=== PATIENT | male | born 1970 | race Hispanic/Latino ===

== ENCOUNTER 2021-01-05 08:52 | Inpatient (IN) | payer OTHER ==
[2021-01-01 15:45] LABS: BASOPHILS % (AUTO) 0.5 % (0.0-5.0); HEMATOCRIT 43.4 % (42-54); LYMPHOCYTES % (AUTO) 31.1 % (21.0-51.0); MEAN CORPUSCULAR HEMOGLOBIN 31.5 pg (27.0-33.0); MEAN CORPUSCULAR HGB CONC 32.5 g/dL (32.0-36.0); MEAN CORPUSCULAR VOLUME 96.9 fL (79-99); MONOCYTES % (AUTO) 10.7 % (3.0-13.0); NEUTROPHILS % (AUTO) 56.5 % (40.0-77.0); PLATELET COUNT (AUTO) 363 K/uL (130-400); RED BLOOD CELL COUNT(AUTO) 4.48 MIL/uL (4.50-6.20); RED CELL DISTRIBUTION WIDTH 13.9 % (11.0-15.5); WHITE BLOOD COUNT (AUTO) 8.8 K/uL (4.8-10.8)
[2021-01-01 15:52] LABS: CREATININE 1.5 mg/dL (0.5-1.5); POTASSIUM 4.5 mmol/L (3.5-5.1)
[2021-01-01 15:56] LABS: INR 0.97 (0.85-1.15); PROTHROMBIN TIME 10.6 SEC (9.6-11.6)
[2021-01-01 15:57] LABS: PARTIAL THROMBOPLASTIN TIME 26.2 SEC (26.3-35.5)
[2021-01-02 10:44] VITALS: BP 131/67
[2021-01-05] VITALS (20 sets, daily range): BP systolic 121–172; BP diastolic 55–94
[~2021-01-05] VITALS: Ht 185.4 cm; Wt 165.1 kg
[~2021-01-05 08:52] MED LIST: CEFAZOLIN SODIUM 1 GM VIAL IVP ONE
[2021-01-05] MEDS: CEFOXITIN SODIUM 2 GM VIAL ONE ×2 (09:37→13:28)
[2021-01-05] MEDS: 0.9%NACL 1000ML 1,000 ML IV SCH ×2 (09:37→14:15)
[2021-01-05] MEDS ORDERED: GABA-529 PO (10:37)
[2021-01-05] MEDS ORDERED: CARV12.511 PO (10:37)
[2021-01-05] MEDS ORDERED: GEMF600T89 PO (10:37)
[2021-01-05] MEDS ORDERED: BUSP15TA3 PO (10:37)
[2021-01-05] MEDS ORDERED: ROSU20TA31 PO (10:37)
[2021-01-05] MEDS ORDERED: GLYB5TAB8 PO (10:37)
[2021-01-05] MEDS ORDERED: ROPI1TAB13 PO (10:37)
[2021-01-05] MEDS ORDERED: METF-446 PO (10:37)
[2021-01-05] MEDS ORDERED: IPRAHFA IH (10:37)
[2021-01-05] MEDS ORDERED: LISI1TAB53 PO (10:37)
[2021-01-05] MEDS ORDERED: BUPIVACAINE/PF 0.5% 30ML VIAL ONE (12:34)
[2021-01-05] MEDS ORDERED: FENTANYL CITRATE PF 50 MCG/1 ML 2ML VIAL ONE ×3 (12:43→15:12)
[2021-01-05] MEDS ORDERED: MIDAZOLAM HCL 1 MG/ML 2ML VIAL ONE (12:43)
[2021-01-05] MEDS ORDERED: DEXAMETHASONE SOD PHOSPHATE 10MG/ML 1ML VIAL ONE (12:43)
[2021-01-05] MEDS ORDERED: NEOSTIGMINE 5MG/5ML SYR IV ONE (12:43)
[2021-01-05] MEDS ORDERED: SUCCINYLCHOLINE 200MG/10ML SYR ONE ×2 (12:43→14:40)
[2021-01-05] MEDS ORDERED: LIDOCAINE PF 100MG/5ML (2%) SYRINGE 5ML ONE (12:43)
[2021-01-05] MEDS ORDERED: ROCURONIUM 10MG/1ML SYR 10 MG/ML ML ONE (12:43)
[2021-01-05] MEDS ORDERED: PROPOFOL 10 MG/ML 20ML VIAL IV ONE (12:43)
[2021-01-05] MEDS ORDERED: ONDANSETRON 4MG INJ ONE (12:43)
[2021-01-05] MEDS ORDERED: GLYCOPYRROLATE 1 MG/5 ML SYRINGE ONE (12:43)
[2021-01-05] MEDS ORDERED: MEPERIDINE-PF 25 MG/ML SYG ONE ×2 (13:16→15:27)
[2021-01-05] MEDS ORDERED: ONDANSETRON 4MG INJ IVP PRN (15:30)
[2021-01-05] MEDS: CEFAZOLIN SODIUM 1 GM VIAL IVP SCH (15:30)
[2021-01-05] MEDS ORDERED: MORPHINE 4 MG SYG IVP PRN (15:30)
[2021-01-05] MEDS ORDERED: KETOROLAC 30MG VIAL (30MG/ML) IM PRN (15:30)
[2021-01-05] MEDS: LACTATED RINGERS 1000ML 1,000 ML IV SCH ×2 (15:30→23:30)
[2021-01-05] MEDS ORDERED: LACTATED RINGERS 1000ML 1,000 ML IV ONE (16:22)
[2021-01-05] MEDS ORDERED: KETOROLAC 30MG VIAL (30MG/ML) IV PRN (19:00)
[2021-01-05] MEDS: BUSPIRONE HCL 5 MG TABLET PO SCH (20:58)
[2021-01-05] MEDS: FAMOTIDINE 20MG VIAL IV SCH (20:58)
[2021-01-05] MEDS: CARVEDILOL 12.5 MG TABLET PO SCH (20:59)
[2021-01-05] MEDS: ENOXAPARIN SODIUM 30 MG/0.3 ML SQ SCH (22:16)
[2021-01-06] MEDS: CEFAZOLIN SODIUM 1 GM VIAL IVP SCH (00:11)
[2021-01-06 04:01] LABS: BASOPHILS % (AUTO) 0.1 % (0.0-5.0); HEMATOCRIT 39.6 % (42-54); LYMPHOCYTES % (AUTO) 10.5 % (21.0-51.0); MEAN CORPUSCULAR HEMOGLOBIN 31.9 pg (27.0-33.0); MEAN CORPUSCULAR HGB CONC 32.8 g/dL (32.0-36.0); MEAN CORPUSCULAR VOLUME 97.3 fL (79-99); MONOCYTES % (AUTO) 9.3 % (3.0-13.0); PLATELET COUNT (AUTO) 287 K/uL (130-400); RED BLOOD CELL COUNT(AUTO) 4.07 MIL/uL (4.50-6.20); RED CELL DISTRIBUTION WIDTH 13.5 % (11.0-15.5); WHITE BLOOD COUNT (AUTO) 8.8 K/uL (4.8-10.8)
[2021-01-06 04:09] LABS: CREATININE 1.5 mg/dL (0.5-1.5); POTASSIUM 4.6 mmol/L (3.5-5.1)
[2021-01-06 04:13] VITALS: BP 165/62
[2021-01-06] MEDS ORDERED: IPRATROPIUM BROMIDE IH PRN (06:30)
[2021-01-06] MEDS: LACTATED RINGERS 1000ML 1,000 ML IV SCH ×2 (07:30→15:30)
[2021-01-06 07:49] VITALS: BP 153/70
[2021-01-06] MEDS: ENOXAPARIN SODIUM 30 MG/0.3 ML SQ SCH (08:17)
[2021-01-06] MEDS: FAMOTIDINE 20MG VIAL IV SCH (08:17)
[2021-01-06] MEDS: BUSPIRONE HCL 5 MG TABLET PO SCH (08:18)
[2021-01-06] MEDS: CARVEDILOL 12.5 MG TABLET PO SCH (08:18)
[2021-01-06] MEDS ORDERED: LISINOPRIL 20 MG TABLET PO SCH (09:00)
[2021-01-06] MEDS ORDERED: HYDROCHLOROTHIAZIDE 25 MG TABLET PO SCH (09:00)
[2021-01-06 10:41] VITALS: BP 161/85
[2021-01-06 15:49] VITALS: BP 160/73
[2021-01-06] MEDS: SIMETHICONE 80 MG TAB.CHEW PO SCH ×2 (16:23→16:24)
[2021-01-06] MEDS ORDERED: CEFAZOLIN SODIUM 1 GM VIAL IVP SCH (16:30)
== END 2021-01-06 19:13 | disposition home or self-care (01) | DRG 621 ==
LOC: DAHIP 08:52 → 4BH 16:54
PROVIDERS: ADMIT Surgery; ATTEND Surgery
PROC: 0D164ZA Bypass Stomach to Jejunum, Percutaneous Endoscopic Approach (ICD-10-PCS; principal; 2021-01-05 13:41)
DX: E66.01 Morbid (severe) obesity due to excess calories (principal); I10 Essential (primary) hypertension; J44.9 Chronic obstructive pulmonary disease, unspecified; Z20.822 Contact with and (suspected) exposure to COVID-19; F41.9 Anxiety disorder, unspecified; M19.90 Unspecified osteoarthritis, unspecified site; K21.9 Gastro-esophageal reflux disease without esophagitis; E11.9 Type 2 diabetes mellitus without complications; Z68.42 Body mass index [BMI] 45.0-49.9, adult; Z80.9 Family history of malignant neoplasm, unspecified; Z82.49 Family history of ischemic heart disease and other diseases of the circulatory system
CPT/HCPCS: 36415; 43235; 80048; 82948; 85025; 85610; 85730; 86850; 86900; 86901; 87635; G0378; J0330; J0690; J0694; J1100; J1650; J1885; J2001; J2175; J2250; J2270; J2405; J2704; J2710; J3010; J3490; J7030; J7120